=== PATIENT | male | born 1970 | race Caucasian/White ===

== ENCOUNTER 2018-05-04 10:03 | Day surgery (SDC) | payer BC ==
[2018-05-04] MEDS ORDERED: LIDOCAINE 4% SOLUTION 50 ML BTL (12:49)
[2018-05-04] MEDS ORDERED: MIDAZOLAM 1 MG/ML 2 ML INJ ×3 (13:26)
[2018-05-04] MEDS ORDERED: FENTAnyl 50 MCG/ML VIAL (13:26)
== END 2018-05-04 14:57 | disposition home or self-care (01) ==
LOC: GIL 10:03
DX: Z12.11 Encounter for screening for malignant neoplasm of colon (principal); Z80.0 Family history of malignant neoplasm of digestive organs; D12.5 Benign neoplasm of sigmoid colon; D12.8 Benign neoplasm of rectum; K29.00 Acute gastritis without bleeding
CPT/HCPCS: 43239; 82962; 88305; 88312